=== PATIENT | female | born 1985 | race Caucasian/White ===

== ENCOUNTER → 2018-08-09 09:10 | Outpatient (CLI) | payer BC, SELFPAY ==
[2018-08-09 10:52] LABS: Hemoglobin A1c 5.6 % (4.2-6.3)
[2018-08-09 11:31] LABS: ALB/GLOB Ratio 1.3 RATIO (0.9-2.4); AST(SGOT) 13 U/L (15-37); Alanine Aminotransfer ALT/SGPT 19 U/L (13-56); Albumin, Serum 3.8 g/dL (3.2-5.0); Alkaline Phosphatase 45 U/L (45-117); Anion Gap 11 (5-15); BUN 9 mg/dL (7-18); BUN/Creat Ratio 12.8 RATIO (10-20); Calcium,Total 8.9 mg/dL (8.5-10.1); Chloride 102 mmol/L (98-107); Cholesterol 191 mg/dL (200); EST Glomerular Filtration Rate 102 mL/min (>60); Est Glom Filt Rate - Afr Amer 124 mL/min (>60); Glucose 87 mg/dL (74-106); High Density Lipoprotein 72 mg/dL; Potassium 4.5 mmol/L (3.5-5.1); Protein, Total 6.8 g/dL (6.4-8.2); Sodium Level 140 mmol/L (136-145); Thyroid Stim Hormone (TSH) 0.79 uIU/mL (0.358-3.74); Triglycerides 97 mg/dL; Very Low Density Lipoprotein 19 mg/dL (5-40)
== END ==
PROVIDERS: Family Provider Family Medicine; PCP Family Medicine; Visit Provider Family Medicine
DX: Z00.00 Encounter for general adult medical examination without abnormal findings (principal)
CPT/HCPCS: 36415; 80053; 80061; 83036; 84443

== ENCOUNTER → 2022-09-12 | Outpatient (CLI) | payer BC, SELFPAY ==
[2022-09-12 12:11] LABS: Absolute Lymphocyte Count 2.33 X10^3/uL (0.83-4.51); Absolute Neutrophil Count 4.5 X10^3/uL (2.0-7.7); Basophil# 0.06 X10^3/uL; Basophil% 0.8 % (0-1); Eosinophil# 0.13 X10^3/uL; Eosinophils% 1.7 % (0-5); Hematocrit 40.7 % (37-47); Hemoglobin 12.9 g/dL (12.0-15.0); Lymphocyte # 2.33 X10^3/ul (0.83-4.51); Lymphocyte % 30.9 % (19-41); Mean Corp Hgb Conc 31.7 g/dL (32-36); Mean Corpuscular Hgb 28.1 pg (27.0-32.0); Mean Corpuscular Volume 88.7 fL (81-99); Mean Platelet Vol. 11.2 fl (6.2-12.0); Monocyte# 0.51 X10^3/uL; Monocyte% 6.8 % (0-10); NRBC Flagged by Analyzer 0 % (0-5); Neutrophil # 4.48 X10^3/uL (2.7-7.7); Neutrophil % 59.5 % (47-70); Platelet Count 277 K/mm3 (150-450); RBC Distribution Width CV 12.5 % (11.6-14.6); RBC Distribution Width SD 40.5 fl (35.1-43.9); Red Blood Count 4.59 M/mm3 (4.2-5.4); White Blood Count 7.5 K/mm3 (4.4-11.0)
[2022-09-12 12:33] LABS: Vitamin B12 338 pg/mL (211-911)
[2022-09-12 12:40] LABS: Hemoglobin A1c 5.5 % (3.8-5.6)
[2022-09-12 12:48] LABS: ALB/GLOB Ratio 1.1 RATIO (0.9-2.4); AST(SGOT) 9 U/L (15-37); Alanine Aminotransfer ALT/SGPT 16 U/L (13-56); Albumin, Serum 3.6 g/dL (3.2-5.0); Alkaline Phosphatase 46 U/L (45-117); Anion Gap 5 (5-15); BUN 11 mg/dL (7-18); BUN/Creat Ratio 15.9 RATIO (10-20); Chloride 105 mmol/L (98-107); Cholesterol 199 mg/dL (200); Creatinine, Serum 0.69 mg/dL (0.55-1.02); EST Glomerular Filtration Rate 102 mL/min (>60); Est Glom Filt Rate - Afr Amer 123 mL/min (>60); Ferritin 20 ng/mL (8-252); Follicle Stimulating Hormone 3.7 mIU/mL; Globulin 3.3 g/dL (2.2-4.2); Glucose 102 mg/dL (74-106); High Density Lipoprotein 61 mg/dL; Luteinizing Hormone 3.8 mIU/mL; Magnesium 1.9 mg/dL (1.6-2.6); Potassium 4.2 mmol/L (3.5-5.1); Protein, Total 6.9 g/dL (6.4-8.2); Sodium Level 140 mmol/L (136-145); Thyroid Stim Hormone (TSH) 0.99 uIU/mL (0.358-3.74); Triglycerides 110 mg/dL; Very Low Density Lipoprotein 22 mg/dL (5-40)
== END | disposition home or self-care (01) ==
LOC: MFPLAB 10:25
PROVIDERS: PCP Family Medicine; Referring Provider Family Medicine; Visit Provider Family Medicine
DX: Z00.01 Encounter for general adult medical examination with abnormal findings (principal); E28.2 Polycystic ovarian syndrome; Z79.899 Other long term (current) drug therapy
CPT/HCPCS: 36415; 80050; 80053; 80061; 82607; 82627; 82728; 82746; 83001; 83002; 83036; 83735; 84403; 84443; 85025; 82626

== ENCOUNTER 2022-10-29 13:00 | Outpatient (RCR) | payer BC, SELFPAY ==
--- NOTE | 2022-09-16 13:44 | HP.PTEVAL_ITS ---
Patient's Visit Information LALY KOVACS is a 37 year old F referred to Physical Therapy by Dr. Fernie Thompson MD with a diagnosis of R heel pain. Date of Evaluation: 09/16/22 Physical Therapist: MATTY Maria - Visit Plan Frequency: 1x/Week Duration: 4 Weeks Plan: +++Pt goes by the name of Nisha. 1X/ week for 4 weeks for R gastroc stretch, foam roller to gastroc and soleus, US to the R heel, deep tissue to the R heel, gait training with HEP. HEP: gastroc towel stretch, calf foam roller, water bottle ice. - Subjective Pt has pain on the bottom of her R heel after she walks. Certain shoes make it worse. If she walks 1 mile she will hurt that day and the next day and a couple of days after. Dr Thompson thinks that it has to do with a tendon. Pt does not know. This started a few months ago. She reports that most of her shoes bother it. She does not walk long distances bare foot so she is not sure. It usually hurts when there is pressure on it when stand on it. She has pressure first thing in the morning but if she stands or walks on it for long periods of time it gets worse. She reports no N&T. She has tried stretching (hamstring and gastroc). Def tender spot with massage therapist and helped some. Staying off helps. - Pain R heel pain Pain Intensity (Out of 10): 6 - Objective Gait: walks with increase force with heel strike on the R. Palpation: tender at the base of the calcaneus. No pain with palpation along the R plantar fascia itself or along the achilles tendon itself. Some pain along the gastroc muscle belly with palpation on the right. R ankle AROM: normal PF and DF AROM (AROM R DF is 15 degrees). Pt is able to walk on heels and toes without any pain. She does feel where the pain would be on the R with walking on her heel on the right but because she has not walked a lot today it is not bothering her. SLB B 25 seconds. - Balance/Special Test Scores Lower Extremity Functional Score: 72 - Goals Goal 1:: I HEP Goal Time Frame: 4-6 Weeks Goal 2:: Be able to walk recreationally without having heel pain Goal Time Frame: 4-6 Weeks Goal 3:: Be able to complete heel walking without R heel pain or feeling of pain Goal Time Frame: 4-6 Weeks - Rehabilitation Potential Physical Therapy Diagnosis: R bone spur VS PF VS achilles tendonitis Rehabilitation Potential: Good - Anticipated Interventions Patient/Client Instruction: Educate patient on: Condition, Plan of Care For the Purpose of:: To decrease pain, To increase ROM, To improve nutrient delivery to tissue, To improve muscle performance and motor function, To improve ability to perform ADL's, To increase tolerance to activity/condition/position, To improve performance and independence with ADL's, To decrease level of supervision to perform tasks, To improve ability of physical actions for home/community/work/leisure, To improve gait and locomotor functions, To improve health of tissue, To decrease soft tissue restriction Therapeutic Exercise to Include: Strength training, Balance training, Flexibilty training, Gait and locomotor training, Neuromotor development, Passive ROM, Active ROM For the Purpose of:: To decrease pain, To increase ROM, To improve nutrient delivery to tissue, To improve muscle performance and motor function, To improve ability to perform ADL's, To increase tolerance to activity/condition/position, To improve performance and independence with ADL's, To decrease level of supervision to perform tasks, To improve ability of physical actions for home/community/work/leisure, To improve gait and locomotor functions, To improve health of tissue, To decrease soft tissue restriction, To increase flexibility/ROM Functional Training to Include: Gait training For the Purpose of:: To improve gait and locomotor functions Manual Therapy Techniques to Include: Mobilization, Passive ROM, Soft tissue mobilization For the Purpose of:: To decrease pain, To increase ROM, To improve nutrient delivery to tissue, To increase oxygenation perfusion, To improve muscle performance and motor function, To improve ability to perform ADL's, To increase tolerance to activity/condition/position, To improve performance and independence with ADL's, To decrease level of supervision to perform tasks, To improve ability of physical actions for home/community/work/leisure, To improve gait and locomotor functions, To improve health of tissue, To decrease soft tissue restriction, To increase flexibility/ROM Cryotherapy (ice pack, ice massage): Yes Ultrasound (thermal/non thermal): Yes For the Purpose of:: To decrease pain, To decrease swelling/inflammation, To increase ROM, To improve nutrient delivery to tissue, To improve muscle performance and motor function, To improve ability to perform ADL's, To increase tolerance to activity/condition/position Thank you for the opportunity to evaluate your patient. For Medicare and Medicare HMO plans, please review the plan of care and approve it. It will need to be FAXED BACK to us at [phone] for Medicare purposes. For Medicare only, by signing this I certify the plan of care. Please let me know if there are questions or concerns regarding this plan of care. Physician Signature:____ Date:
--- NOTE | 2022-10-29 13:28 | HP.PTDCSUM ---
It has been my pleasure to treat LALY KOVACS referred by Dr. Fernie Thompson MD, with the diagnosis of R heel pain for a total of 4 visit(s). Discharge Date: 10/29/22 Please see the following information for a summary of their discharge status. Subjective: Pt reports that she walked the other day and had arch pain to the heel pain. She has been stretching a lot. R heel pain Pain Intensity (Out of 10): 2 % Improvement: 40 Objective/Function: Pt has no tenderness to palpation but pain from the medial arch to the heel of the foot after walking Goal 1:: I HEP Goal Progress: Goal Met Goal 2:: Be able to walk recreationally without having heel pain Goal Progress: Not Progressing Goal 3:: Be able to complete heel walking without R heel pain or feeling of pain Goal Progress: Progressing Plan: +++Pt goes by the name of Nisha. 1X/ week for 4 weeks for R gastroc stretch, foam roller to gastroc and soleus, US to the R heel, deep tissue to the R heel, gait training with HEP. HEP: gastroc towel stretch, calf foam roller, water bottle ice. Discharge Comments: DC PT back to for further diagnostics or specialist If there are questions or concerns regarding this patient's physical therapy, please feel free to call me at [phone]. Thank you for the referral of this patient. Sincerely, Marla Alegre, MPT Balance/Gait/Functional tests - Balance/Special Test Scores Lower Extremity Functional Score: 70
== END 2022-10-29 19:00 | disposition home or self-care (01) ==
LOC: PT 13:00
PROVIDERS: PCP Family Medicine; Referring Provider Family Medicine; Visit Provider Family Medicine
DX: M79.671 Pain in right foot (principal)
CPT/HCPCS: 97035; 97110; 97161

== ENCOUNTER → 2025-04-24 | Outpatient (CLI) | payer BC, SELFPAY ==
[2025-04-24 16:14] LABS: AST(SGOT) 21 U/L (<=31); Alanine Aminotransfer ALT/SGPT 22 U/L (<=34); Albumin, Serum 4.1 g/dL (3.5-5.0); Alkaline Phosphatase 45 U/L (35-104); Anion Gap 11 (5-15); BUN 11 mg/dL (4-19); BUN/Creat Ratio 14.6 RATIO (10-20); Calcium,Total 9.4 mg/dL (7.6-11.0); Carbon Dioxide 25.2 mmol/L (21.0-32.0); Chloride 104 mmol/L (98-108); Globulin 2.8 g/dL (2.2-4.2); Glucose 96 mg/dL (70-99); Potassium 4.2 mmol/L (3.3-5.1)
== END | disposition home or self-care (01) ==
LOC: MFPLAB 12:26
PROVIDERS: PCP Family Medicine; Visit Provider Family Medicine
DX: E28.2 Polycystic ovarian syndrome (principal)
CPT/HCPCS: 36415; 80053